=== PATIENT | female | born 1985 | race Two or more races ===

== ENCOUNTER 2018-09-23 14:25 | Emergency (ER) | payer SELFPAY ==
[~2018-09-23] VITALS: Ht 165.1 cm; Wt 86.2 kg
[2018-09-23 14:32] VITALS: BP 110/73
[2018-09-23] MEDS ORDERED: ACETAMINOPHEN 325 MG TABLET PO ONE (15:00)
[2018-09-23] MEDS ORDERED: ACETAMINOPHEN 325 MG TABLET ONE (15:29)
== END 2018-09-23 16:00 | disposition home or self-care (01) ==
LOC: ER 14:25
DX: R07.89 Other chest pain (principal)
CPT/HCPCS: 71045-TC